=== PATIENT | male | born 1975 ===

== ENCOUNTER 2016-12-14 21:11 | Emergency (ER) | payer SELFPAY ==
[2016-12-14 21:12] VITALS: BMI 29.9
== END 2016-12-14 21:39 | disposition left against medical advice (07) ==
LOC: ED 21:11
DX: M54.9 Dorsalgia, unspecified (principal)

== ENCOUNTER 2017-05-16 14:43 | Emergency (ER) | payer OTHER ==
[2017-05-16 14:48] VITALS: BMI 29.0
[2017-05-16 14:51] VITALS: BP 122/79; PULSE 85; RESP 19; TEMP 98.1; O2SAT 98
--- NOTE | 2017-05-16 15:07 | ED PDOC ---
Arrival/HPI - General Chief Complaint: ENT Problem Time Seen by Provider: 05/16/17 14:45 Historian: Patient - History of Present Illness Narrative History of Present Illness (Text): 05/16/17 15:14 42 y.o. male who denies any significant past medical history who comes in the ED because he has an ear bud stuck in his R ear x 1 hour with a feeling of pressure in the R ear. No other complaints. No fever. Past Medical History - Infectious Disease Hx of Infectious Diseases: None - Tetanus Immunization Tetanus Immunization: Unknown - Cardiac Hx Cardiac Disorders: No - Pulmonary Hx Respiratory Disorders: No - Neurological Hx Neurological Disorder: No - HEENT Hx HEENT Disorder: No - Renal Hx Renal Disorder: No - Endocrine/Metabolic Hx Endocrine Disorders: No - Hematological/Oncological Hx Blood Disorders: No - Integumentary Hx Dermatological Disorder: No - Musculoskeletal/Rheumatological Hx Musculoskeletal Disorders: No - Gastrointestinal Hx Gastrointestinal Disorders: Yes Hx Gastroesophageal Reflux: Yes - Genitourinary/Gynecological Hx Genitourinary Disorders: No - Psychiatric Hx Psychophysiologic Disorder: Yes Hx Depression: Yes Hx Emotional Abuse: No Hx Physical Abuse: No Hx Substance Use: No - Surgical History Hx Appendectomy: Yes - Anesthesia Hx Anesthesia: Yes Hx Anesthesia Reactions: No - Suicidal Assessment Feels Threatened In Home Enviroment: No Family/Social History Family/Social History: Unknown Family HX Smoking Status: Current Some Days Smoker Hx Alcohol Use: No Hx Substance Use: No Allergies/Home Meds Allergies/Adverse Reactions: Allergies No Known Allergies Allergy (Verified 05/16/17 14:48) Review of Systems - Review of Systems Constitutional: absent: Fevers ENT: Other (R ear foreign body) Physical Exam Vital Signs Temp Pulse Resp BP Pulse Ox 05/16/17 14:50 98.1 F 85 19 122/79 98 Temperature: Afebrile Blood Pressure: Normal Pulse: Regular Respiratory Rate: Normal Appearance: Positive for: Well-Appearing, Non-Toxic, Comfortable Pain Distress: None Mental Status: Positive for: Alert and Oriented X 3 - Systems Exam Head: Present: Atraumatic, Normocephalic Ears: Present: Other (R ear canal with black foreign body in the right ear (ear bud removed); R TM otherwise normal; L TM normal and normal canal.) Pharnyx: Present: Normal. No: ERYTHEMA, EXUDATE, TONSILS ENLARGED Medical Decision Making ED Course and Treatment: 05/16/17 15:09 Patient with R ear foreign body x 1 hour; ear bid removed with mosquito clamp. Will d/c and have him use topical cortisporin x 2 days for prophylaxis and f/ u in the medical clinic. - Scribe Statement The provider has reviewed the documentation as recorded by the Gin Vaughan Provider Scribe Attestation: All medical record entries made by the Scribjuancho were at my direction and personally dictated by me. I have reviewed the chart and agree that the record accurately reflects my personal performance of the history, physical exam, medical decision making, and the department course for this patient. I have also personally directed, reviewed, and agree with the discharge instructions and disposition. Disposition/Present on Arrival - Present on Arrival Any Indicators Present on Arrival: No History of DVT/PE: No History of Uncontrolled Diabetes: No Urinary Catheter: No History of Decub. Ulcer: No History Surgical Site Infection Following: None - Disposition Have Diagnosis and Disposition been Completed?: Yes Diagnosis: Foreign body in right ear Disposition: HOME/ ROUTINE Disposition Time: 15:05 Patient Plan: Discharge Condition: GOOD Discharge Instructions (ExitCare): Ear Foreign Body (ED) Additional Instructions: Use the drops as prescribed. Follow up with your primary care doctor. Return to the emergency department if any new concerning symptoms. Prescriptions: Neomycin/Polymyxin/Hydrocortis [Cortisporin Otic Susp] 2 drop OT Q6H #1 bottle Referrals: [facility] at [facility] [place] [Outside] - Follow up with primary Forms: [facility] (Cam[place]onian), WORK NOTE
== END 2017-05-16 15:14 | disposition home or self-care (01) ==
LOC: ED 14:43
DX: T16.1XXA Foreign body in right ear, initial encounter (principal); X58.XXXA Exposure to other specified factors, initial encounter